=== PATIENT | male | born 1995 ===

== ENCOUNTER 2018-05-17 02:18 | Emergency (ER) | payer MEDICAID ==
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
[2018-05-17 04:15] VITALS: BP 131/80
== END 2018-05-17 04:14 | disposition home or self-care (01) ==
DX: S40.011A Contusion of right shoulder, initial encounter (principal); S09.93XA Unspecified injury of face, initial encounter; J45.909 Unspecified asthma, uncomplicated; F17.200 Nicotine dependence, unspecified, uncomplicated; Y04.0XXA Assault by unarmed brawl or fight, initial encounter; Y92.9 Unspecified place or not applicable; Y93.9 Activity, unspecified; Y99.9 Unspecified external cause status; Z87.820 Personal history of traumatic brain injury; Z88.0 Allergy status to penicillin